=== PATIENT | female | born 1985 | race Caucasian/White ===

== ENCOUNTER → 2018-03-04 | Outpatient (CLI) | payer OTHER ==
[2018-03-05 03:31] LABS: DHEA Sulfate 106.9 ug/dL (26.0-430.0); T4, Free (Free Thyroxine) 1.3 ng/dL (0.80-1.80)
== END | disposition home or self-care (01) ==
LOC: LABWHC1 15:22
PROVIDERS: ATTEND Obstetrics & Gynecology
DX: N93.8 Other specified abnormal uterine and vaginal bleeding (principal); Z13.29 Encounter for screening for other suspected endocrine disorder
CPT/HCPCS: 36415; 82627; 82670; 82947; 83001; 83002; 84146; 84403; 84439; 84443; 84479

== ENCOUNTER → 2019-03-26 | Outpatient (CLI) | payer OTHER ==
--- NOTE | 2019-03-26 20:51 | US ---
EXAMINATION TYPE: US abdomen complete DATE OF EXAM: 03/26/2019 COMPARISON: NONE CLINICAL HISTORY: R10.12 left upper quad pain. EXAM MEASUREMENTS: Liver Length: 16.5 cm Gallbladder Wall: 0.2 cm CBD: 0.5 cm Spleen: 10. cm Right Kidney: 11.3 x 4.4 x 4.2 cm Left Kidney: 10.6 x 4.7 x 4.9 cm Patient of large body habitus. Pancreas: Obscured by bowel gas Liver: Increased attenuation Gallbladder: No gallstones Evidence for sonographic Shirley's sign: no CBD: wnl Spleen: wnl Right Kidney: No hydronephrosis or masses seen Left Kidney: No hydronephrosis or masses seen Upper IVC: wnl Abd Aorta: partially obscured by bowel gas, portions visualized wnl The visualized liver is heterogeneously hyperechoic. Evaluation for focal masses is suboptimal due t o the heterogeneity. Findings presumed on the basis of diffuse fatty infiltration. The intrahepatic p ortion of the IVC and visualized proximal, mid, and distal abdominal aorta are within normal limits. There is no evidence of shadowing mobile cholelithiasis. Common bile duct is unremarkable. The vis ualized portions of the pancreas are homogenous. Portions are obscured by overlying bowel gas and wagner ges saved. The spleen is unremarkable. Kidneys are symmetric and free of hydronephrosis. No renal lesions are seen on images saved. IMPRESSION: Exam suboptimal due to body habitus. No acute findings are evident.
== END | disposition home or self-care (01) ==
LOC: RADUSWWP 16:14
PROVIDERS: ATTEND Internal Medicine
DX: R10.12 Left upper quadrant pain (principal)
CPT/HCPCS: 76700

== ENCOUNTER 2019-09-30 18:18 | Emergency (ER) | payer OTHER ==
[2019-09-30 18:47] VITALS: BP 112/79; PULSE 76; RESP 18; TEMP 98.1
--- NOTE | 2019-09-30 19:33 | ED ---
General Adult HPI - General Chief complaint: ENT Stated complaint: FB in ear Time Seen by Provider: 09/30/19 19:01 Source: patient, RN notes reviewed, old records reviewed Mode of arrival: ambulatory Limitations: no limitations - History of Present Illness Initial comments: 33-year-old female patient presents to ED if. She believes that there is a bug within her right ear. Patient reports that she is having some pain in her ear and feels that there may be a bug moving around in there. Denies any other complaints at this time. Systemic: Pt denies fatigue, fever/chills, rash. Pt denies weakness, night sweats, weight loss. Neuro: Pt denies headache, visual disturbances, syncope or pre-syncope. HEENT: Pt denies ocular discharge or irritation, rhinorrhea, pharyngitis or notable lymphadenopathy. Cardiopulmonary: Pt denies chest pain, SOB, heart palpitations, dyspnea on exertion. Abdominal/GI: Pt denies abdominal pain, n/v/d. : Pt denies dysuria, burning w/ urination, frequency/urgency. Denies new onset urinary or bowel incontinence. MSK: Pt denies myalgia, loss of strength or function in extremities. Neuro: Pt denies new onset weakness, paresthesias. - Related Data Allergies Allergy/AdvReac Type Severity Reaction Status Date / Time No Known Allergies Allergy Verified 09/30/19 18:47 Review of Systems ROS Statement: Those systems with pertinent positive or pertinent negative responses have been documented in the HPI. ROS Other: All systems not noted in ROS Statement are negative. Past Medical History Past Medical History: No Reported History History of Any Multi-Drug Resistant Organisms: None Reported Past Surgical History: Tonsillectomy Past Psychological History: No Psychological Hx Reported Smoking Status: Current every day smoker Past Alcohol Use History: None Reported Past Drug Use History: None Reported General Exam - General Exam Comments Initial Comments: Constitutional: NAD, AOX3, Pt has pleasant affect. HEENT: NC/AT, trachea midline, neck supple, no lymphadenopathy. Posterior pharynx non erythematous, without exudates. External ears appear normal, without discharge. Tympanic membrane is pale saleh bilaterally. Right auditory canal slightly erythematous. No foreign body noted. Mucous membranes moist. Eyes PERRLA, EOM intact. There is no scleral icterus. No pallor noted. Cardiopulmonary: RRR, no murmurs, rubs or gallops, no JVD noted. Lungs CTAB in anterior and posterior ashley. No peripheral edema. Neuro: CN II-XII grossly intact. No nuchal rigidity. No raccon eyes, no mckinney sign, no hemotympanum. Limitations: no limitations Course Vital Signs 09/30/19 18:43 Temperature 98.1 F Pulse Rate 76 Respiratory 18 Rate Blood Pressure 112/79 O2 Sat by Pulse 100 Oximetry Medical Decision Making - Medical Decision Making 33-year-old female patient presented to ED for evaluation of possible foreign body in right ear. Patient states that she has had a foreign body sensation she believes is a bug moving around. Denies any other complaints. Physical exam does displayed mild amount of erythema noted to the auditory canal right sided. There is no foreign body tympanic membrane is pale saleh bilaterally. No ef fusion is noted. No otorrhea. She states that she is a daily Q-tip user. Likely patient irritated her auditory canal and is having foreign body sensation from that. Patient will be discharged primary care provider and ENT follow-up. Case discussed with Dr. Kenney. Disposition Clinical Impression: Foreign body sensation in right ear canal Disposition: HOME SELF-CARE Condition: Stable Instructions (If sedation given, give patient instructions): Earache (ED) Additional Instructions: Follow-up with primary care provider and ENT tomorrow. Return to ER if condition worsens in any way. Is patient prescribed a controlled substance at d/c from ED?: No Referrals: Miguel Locke MD [Primary Care Provider] - 1-2 days Ronnie Haque MD [STAFF PHYSICIAN] - 1-2 days
== END 2019-09-30 19:38 | disposition home or self-care (01) ==
LOC: EC 18:18
DX: H92.01 Otalgia, right ear (principal); L53.9 Erythematous condition, unspecified; F17.200 Nicotine dependence, unspecified, uncomplicated
CPT/HCPCS: 99283

== ENCOUNTER → 2020-10-05 | Outpatient (CLI) | payer BC ==
--- NOTE | 2020-10-05 10:10 | XR ---
EXAMINATION TYPE: XR knee limited LT DATE OF EXAM: 10/05/2020 COMPARISON: NONE HISTORY: Pain TECHNIQUE: Two views are submitted. FINDINGS: Joint spaces are preserved. Osseous structures are intact. No acute fracture seen. There is a smal l amount of fluid in the suprapatellar bursa. IMPRESSION: 1. No acute fracture or dislocation. Small amount of fluid in the suprapatellar bursa.
== END | disposition home or self-care (01) ==
LOC: RADXRMAIN 09:42
PROVIDERS: ATTEND Physician Assistant
DX: M25.562 Pain in left knee (principal)

== ENCOUNTER 2020-11-05 | Emergency (ER) | payer BC | END 2020-11-05 08:43 | disposition home or self-care (01) ==